=== PATIENT | male | born 1995 | race Caucasian/White ===

== ENCOUNTER 2019-01-28 00:33 | Emergency (ER) | payer OTHER ==
[2019-01-28 00:45] VITALS: BP 132/87
--- NOTE | 2019-01-28 01:01 | ER Report ---
History and Physical Time Seen By MD: 01:01 Hx. of Stated Complaint: closed rt thumb in car door. no numbness, can move it, nail bed black and blue HPI/ROS CHIEF COMPLAINT: Thumb injury HISTORY OF PRESENT ILLNESS: This is a 23-year-old male. Slammed his right thumb in a car door. Having significant pain distal thumb with subungual hematoma under the nail and lots of pressure. Otherwise sensation is normal. Movement thumb without any motor deficits. Allergies: Coded Allergies: No Known Drug Allergies (Unverified , 01/28/19) Home Meds No Active Prescriptions or Reported Meds Reviewed Nurses Notes: Yes Hx Substance Use Disorder: No Hx Alcohol Use: No Constitutional Vital Sign - Last 24 Hours 01/28/19 00:45 Temp 98.2 Pulse 53 Resp 12 B/P (MAP) 132/87 Pulse Ox 93 O2 Delivery Room Air Physical Exam Gen.: Alert, no distress. Skin: Subungual hematoma right thumb nail. Redness in the distal phalanx. No skin breakdown. Musculoskeletal: Pain distal phalanx and under the nail. Proximal phalanx normal . Normal motor function. Cardiovascular: Normal cap refill. Neuro: Normal sensation and motor function. Medical Decision Making EKG/Imaging Imaging Right thumb: Indication: Injury. Technique: 3 views were obtained. Comparison: None available. Findings: There is no evidence of fracture, dislocation, or other acute deformity. There is normal mineralization of the skeletal structures. There is no evidence of soft tissue deformity or opaque foreign body. IMPRESSION: No acute deformity. Report Dictated By: Basilio Castellano MD at 01/28/2019 1:45 AM ED Course/Re-evaluation ED Course X-ray was negative for fracture. Because of the pressure and pain in the thumb we did burn a hole through the thumb nail to relieve the blood and pressure with an electrocautery pen. This was painful but patient tolerated it well. Decision to Disposition Date: January 28, 2019 Decision to Disposition Time: 02:00 Depart Departure Latest Vital Signs Vital Signs Date Time Temp Pulse Resp B/P (MAP) Pulse Ox O2 Delivery O2 Flow Rate FiO2 01/28/19 00:45 98.2 53 12 132/87 93 Room Air Impression: Primary Impression: Subungual hematoma of right thumb Condition: Improved Disposition: HOME OR SELF-CARE New Scripts No Active Prescriptions or Reported Meds Patient Instructions: Subungual Hematoma (ED) Additional Instructions: Ibuprofen 200mg over the counter tablets, take 4 tablets every 8 hours as needed for pain. Problem Qualifiers Primary Impression: Subungual hematoma of right thumb Encounter type: initial encounter Qualified Codes: S60.111A - Contusion of right thumb with damage to nail, initial encounter BRITTON ARMENDARIZ MD January 28, 2019 01:01
--- NOTE | 2019-01-28 01:51 | RADIOLOGY IMAGING REPORT ---
FACILITY: [facility] PATIENT NAME: Salvador Kraus : 1995 MR: [id number] V: [id number] EXAM DATE: ORDERING PHYSICIAN: BRITTON ARMENDARIZ TECHNOLOGIST: [place] [facility] [place] Salvador Kraus : 1995 Visit/Account:[id number] Date of Sevice: 01/28/2019 Right thumb: Indication: Injury. Technique: 3 views were obtained. Comparison: None available. Findings: There is no evidence of fracture, dislocation, or other acute deformity. There is normal mi neralization of the skeletal structures. There is no evidence of soft tissue deformity or opaque fore ign body. IMPRESSION: No acute deformity. Report Dictated By: Basilio Castellano MD at 01/28/2019 1:45 AM Report E-Signed By: Basilio Castellano MD at 01/28/2019 1:46 AM WSN:[id number]
== END 2019-01-28 02:03 | disposition home or self-care (01) ==
LOC: ER 01:02
DX: S60.111A Contusion of right thumb with damage to nail, initial encounter (principal)
CPT/HCPCS: 99283